=== PATIENT | female | born 1965 | race Hispanic/Latino ===

== ENCOUNTER 2024-10-24 14:54 | Emergency (ER) | payer OTHER, SELFPAY ==
--- NOTE | ~2024-10-24 | XR_ITS ---
EXAM: XR ankle RT 2V DATE: 10/24/2024 15:43 HISTORY: rt ankle pain swelling today no injury . COMPARISON: None available. FINDINGS: Osteopenia. No fracture or dislocation. No lytic or blastic lesion. Mild degenerative houser ge at the ankle joint. No erosion or periosteal change. Plantar enthesopathy. Vascular calcifications . IMPRESSION: No acute osseous finding in the right ankle. Reviewed, dictated and finalized at location K. [employer]
[2024-10-24 15:11] VITALS: BP 142/53; PULSE 70; RESP 16; TEMP 37.2; O2SAT 99
--- NOTE | 2024-10-24 15:18 | ED_ITS ---
HPI - Extremity Problem General Chief complaint: Extremity Problem,Nontraumatic Stated complaint: right foot pain,swollen Time Seen by Provider: 10/24/24 15:23 Source: patient, RN notes reviewed and old records reviewed Mode of arrival: ambulatory Limitations: no limitations History of Present Illness HPI Narrative: Patient presents with complaints of pain to right medial ankle and swelling to the right ankle. She reports that pain began after she got up to use the bathroom in the middle of the night. She cannot recall any injury or trauma. But states that she noted pain shortly after she got up. She took Tylenol for pain with minimal relief. She is ambulatory with walker on arrival Related Data Home Medications Medication Instructions Recorded Confirmed carbidopa 25 mg-levodopa 100 mg 1 tablet PO TID 10/24/24 10/24/24 tablet clopidogrel 75 mg tablet 75 mg PO DAILY 10/24/24 10/24/24 famotidine 40 mg tablet 40 mg PO HS 10/24/24 10/24/24 fenofibrate nanocrystallized 145 145 mg PO DAILY 10/24/24 10/24/24 mg tablet fluticasone propionate 50 See Rx Instructions .Route .COMPLEX 10/24/24 10/24/24 mcg/actuation nasal spray,suspension insulin regular hum U-500 conc 500 See Rx Instructions .Route .COMPLEX 10/24/24 10/24/24 unit/mL(3 mL) subcut pen (Humulin R U-500 (Conc) Insulin Kwikpen) metoprolol tartrate 25 mg tablet 50 mg PO BID 10/24/24 10/24/24 pantoprazole 40 mg tablet,delayed 40 mg PO DAILY 10/24/24 10/24/24 release tirzepatide 12.5 mg/0.5 mL See Rx Instructions .Route .COMPLEX 10/24/24 10/24/24 subcutaneous pen injector (Mounjaro) Allergies Allergy/AdvReac Type Severity Reaction Status Date / Time rosiglitazone [Avandia] AdvReac Mild feels bad Verified 10/24/24 15:45 semaglutide [From Ozempic] AdvReac Mild Other Verified 10/24/24 15:45 [id number] Reductase AdvReac Mild Other Verified 10/24/24 15:45 Inhibitor ticagrelor [From Brilinta] AdvReac Mild Other Verified 10/24/24 15:45 Review of Systems Review of Systems: All systems reviewed & are unremarkable except as noted in HPI and below Constitutional: Constitutional: Reports no additional constitutional complaints ENT: Reports system reviewed and no additional complaints, except as documented Cardiovascular: Cardiovascular: Reports no additional cardiovascular complaints Respiratory: Respiratory: Reports no additional respiratory complaints Gastrointestinal: Gastrointestinal: Reports no additional gastrointestinal complaints Musculoskeletal: Musculoskeletal: Reports no additional musculoskeletal complaints, Reports as per HPI and Reports arthralgias PMFSH Comments At the time of my signature, I reviewed and agree with the nursing past medical, surgical, social, and family history. There is no relevant family history pertinent to the patient complaint. Exam Const: General: cooperative, no acute distress, alert and awake Orientation/consciousness: oriented to person, oriented to place and oriented to time HENMT: Head: normal to inspection Mouth: Yes moist mucous membranes Resp: Effort & Inspection: normal respiratory effort and able to speak in complete sentences Auscultation: clear to auscultation bilaterally, no crackles, no rales, no rhonchi and no wheezes Cardio: Palpation: normal PMI Rate: regular rate Rhythm: regular rhythm Heart sounds: S1 normal heart sound present and S2 normal heart sound present Neuro: General: oriented to person, oriented to place and oriented to time Cranial nerves: Yes CN's II-XII intact bilaterally Extrem: Right lower extremity: normal capillary refill, ankle Details: tenderness Location: of the medial malleolus and swelling Details: laterally and foot Details: toes with normal ROM and vascular exam Details: dorsalis pedis pulse present Psych: Appearance: grossly normal Thought process: Normal thought process present Insight: Good insight present (Psych) Judgement: Good judgement present (Psych) Course Course Level of Care: Express Care Visit Vital Signs Vital signs: Vital Signs Temperature 99 F 10/24/24 15:11 Pulse Rate 70 10/24/24 15:11 Respiratory Rate 16 10/24/24 15:11 Blood Pressure 142/53 H 10/24/24 15:11 Pulse Oximetry 99 10/24/24 15:11 Oxygen Delivery Room Air 10/24/24 15:11 Temperature 99 F 10/24/24 15:11 Pulse Rate 70 10/24/24 15:11 Respiratory Rate 16 10/24/24 15:11 Blood Pressure 142/53 H 10/24/24 15:11 Pulse Oximetry 99 10/24/24 15:11 Oxygen Delivery Room Air 10/24/24 15:11 Reviewed MDM - Extremity (Nontraumatic) MDM Narrative Medical decision making narrative: X-ray with no acute findings, patient does follow with Podiatry. She is advised to keep the affected extremity elevated, Edgar wrap applied. Follow with primary care provider, podiatry. Emergency department for new or worse symptoms. Discharge instructions reviewed with patient, as well as provided in writing per nursing staff. The instructions also include specific and strict return/GO TO THE ER as well as f/u information. All questions have been answered, and the patient deny any further questions with discharge and discharge plan. Some parts of this dictation were generated by voice recognition software and may contain typographical and/or grammatical inaccuracies. Imaging Data My impression: No acute findings Radiologist's impression: [facility] [address] [id number] XRay Report Signed Patient: Alma Andrews : 1965 MR#: [id number] Age: 58 Acct:[id number] Loc: [facility] ADM Date: 10/24/24Attending Dr: Ordering Physician: Viktoriya Maria FNP Date of Service: 10/24/24 Procedure(s): XR ankle RT 2V Accession Number(s): [id number] cc: Viktoriya Maria FNP; Parisa, Cathie Regalado MD~ EXAM: XR ankle RT 2V DATE: 10/24/2024 15:43 HISTORY: rt ankle pain swelling today no injury . COMPARISON: None available. FINDINGS: Osteopenia. No fracture or dislocation. No lytic or blastic lesion. Mild degenerative change at the ankle joint. No erosion or periosteal change. Plantar enthesopathy. Vascular calcifications. IMPRESSION: No acute osseous finding in the right ankle. Reviewed, dictated and finalized at location K. NUE SPECIALIST Dictated By: Sotero Rocha MD 10/24/24 1545 Signed By: <Electronically signed by Sotero Rocha MD in OV> Discharge Plan Discharge Clinical Impression: Ankle pain, right Qualifiers: Chronicity: acute Qualified Code(s): M25.571 - Pain in right ankle and joints of right foot Patient Disposition: Home, Self-Care Condition: Stable Instructions: Antibiotic Form, P.R.I.C.E. Treatment (ED) Additional Instructions: Tylenol per package instructions as needed for pain. Patient Language: English Prescriptions: No Action famotidine 40 mg tablet 40 mg PO HS clopidogrel 75 mg tablet 75 mg PO DAILY pantoprazole 40 mg tablet,delayed release (DR/EC) 40 mg PO DAILY carbidopa-levodopa 25-100 mg tablet 1 tablet PO TID fluticasone propionate 50 mcg/actuation spray,suspension See Rx Instructions .ROUTE .COMPLEX Rx Instructions: Rx metoprolol tartrate 25 mg tablet 50 mg PO BID fenofibrate nanocrystallized 145 mg tablet 145 mg PO DAILY Humulin R U-500 (Conc) Kwikpen 500 unit/mL (3 mL) insulin pen See Rx Instructions .ROUTE .COMPLEX Rx Instructions: Rx Mounjaro 12.5 mg/0.5 mL pen injector See Rx Instructions .ROUTE .COMPLEX Rx Instructions: Rx Follow-up/Referrals: Parisa,Cathie Regalado MD [Primary Care Provider] - 3 Days Time of Disposition: 15:56
== END 2024-10-24 16:10 | disposition home or self-care (01) ==
PROVIDERS: Emergency Provider Nurse Practitioner Family; PCP Internal Medicine
DX: M25.571 Pain in right ankle and joints of right foot (principal); G20.A1 Parkinson's disease without dyskinesia, without mention of fluctuations; I10 Essential (primary) hypertension; E11.9 Type 2 diabetes mellitus without complications; E78.00 Pure hypercholesterolemia, unspecified; K21.9 Gastro-esophageal reflux disease without esophagitis; M19.90 Unspecified osteoarthritis, unspecified site; Z95.5 Presence of coronary angioplasty implant and graft; Z86.718 Personal history of other venous thrombosis and embolism; I25.2 Old myocardial infarction
CPT/HCPCS: 73600; 99213; G0463